=== PATIENT | female | born 1990 | race Caucasian/White ===

== ENCOUNTER → 2020-11-22 | Outpatient (REF) | payer BC ==
[2020-11-22 18:04] LABS: HEMATOCRIT 39.8 % (36.0-47.0); HEMOGLOBIN 13.5 g/dl (12.0-15.5); MEAN CORPUSCULAR HEMOGLOBIN 29.7 pg (27.0-33.0); MEAN CORPUSCULAR HGB CONC 33.9 g/dl (32.0-36.5); MEAN CORPUSCULAR VOLUME 87.5 fl (80.0-96.0); PLATELET COUNT, AUTOMATED 283 10^3/uL (150-450); RED BLOOD COUNT 4.55 10^6/uL (4.00-5.40); WHITE BLOOD COUNT 9.9 10^3/uL (4.0-10.0)
[2020-11-22 19:01] LABS: HEPATITIS C VIRUS ABY INDEX < 0.0 INDEX (<0.8); HIV 1&2 SCREEN CENTAUR NEGATIVE (NEGATIVE)
[2020-11-22 20:39] LABS: CHLAMYDIA DNA AMPLIFICATION NEGATIVE (NEGATIVE); GC DNA AMPLIFICATION NEGATIVE (NEGATIVE)
== END ==
LOC: M PLALAB 15:14
PROVIDERS: ATTEND Advanced Practice Midwife
DX: Z34.01 Encounter for supervision of normal first pregnancy, first trimester (principal)

== ENCOUNTER → 2020-12-21 | Outpatient (CLI) | payer BC | LOC: M PLALAB 10:10 | PROVIDERS: ATTEND Advanced Practice Midwife | DX: Z34.82 Encounter for supervision of other normal pregnancy, second trimester (principal); Z3A.00 Weeks of gestation of pregnancy not specified; Z84.89 Family history of other specified conditions ==

== ENCOUNTER → 2020-12-28 | Outpatient (CLI) | payer BC ==
--- NOTE | 2020-12-28 14:27 | REP ---
INDICATION: EVAL PLACENTA LOCATION. COMPARISON: None. TECHNIQUE: Transabdominal and transvaginal obstetric sonography. Limited scanning. FINDINGS: Scanning through the gravid uterus demonstrates a viable single intrauterine gestation in transverse lie. motion is observed and heart rate is recorded at 143 beats per minute. A anterior placenta is seen, grade 0, covering the internal cervical os consistent with complete placenta previa.. Closed cervical length is measured at 3.0 cm transvaginally. No extrauterine abnormality is observed. Amniotic fluid is subjectively normal. IMPRESSION: Anterior placenta with complete placenta previa. <Electronically signed by Heriberto Forrester > 12/28/20 [id number]
== END ==
LOC: M WHC 12:55
PROVIDERS: ATTEND Advanced Practice Midwife
DX: O46.92 Antepartum hemorrhage, unspecified, second trimester (principal); Z3A.00 Weeks of gestation of pregnancy not specified

== ENCOUNTER → 2021-03-07 | Outpatient (CLI) | payer BC ==
--- NOTE | 2021-03-08 08:50 | ECHO ---
ECHOCARDIOGRAM DATE OF PROCEDURE: 03/07/2021 Age: Gender: F Height: 165 cm Weight: 88 kg REFERRING PHYSICIAN: Charlene Herrera INDICATION: High-risk , cystic fibrosis carrier MEASUREMENTS: IVS: 0.8 LV: 4.6 LVPW: 0.8 LA: 3.3 Aorta: 3.0 Mitral E wave velocity is 59; A wave 56 E prime septal: 11.0 E prime lateral: 19.3 FINDINGS: This study is of acceptable technical quality. There are good parasternal views and limited apical and subcostal views. Underlying sinus rhythm with ventricular rate around 80 beats per minute. Left ventricle has normal size and systolic function; estimated left ventricular ejection fraction (LVEF) 65% to 70%. No segmental wall motion abnormalities are noted. Normal right ventricle (RV) size and systolic function. Normal size of both atria. Normal-appearing aortic, mitral, tricuspid and pulmonic valves. No pericardial effusion. Inferior vena cava was not well seen. Aortic root and aortic arch appear normal. Abdominal aorta was not well visualized. Doppler interrogation reveals competent aortic valve. There is trace mitral and trace tricuspid insufficiency. Pulmonic valve is functionally competent as well. Mitral inflow pattern and tissue Doppler imaging of mitral annulus reveal normal diastolic function. CONCLUSIONS: 1. Study is of acceptable technical quality, underlying sinus rhythm. 2. Normal left ventricle (LV) size with normal left ventricular (LV) systolic and diastolic function. 3. No significant valvular disease. 4. Unable to estimate central venous pressure but likely normal pulmonary artery pressure. 5. Accounting for technical limitations, essentially normal echocardiogram.
== END ==
LOC: M CARPUL 08:17
PROVIDERS: ATTEND Obstetrics & Gynecology
DX: O09.892 Supervision of other high risk pregnancies, second trimester (principal); Z14.1 Cystic fibrosis carrier; Z3A.00 Weeks of gestation of pregnancy not specified

== ENCOUNTER → 2021-03-14 | Outpatient (CLI) | payer BC | LOC: M PLALAB 10:44 | PROVIDERS: ATTEND Obstetrics & Gynecology | DX: Z34.93 Encounter for supervision of normal pregnancy, unspecified, third trimester (principal) ==

== ENCOUNTER 2021-05-20 16:28 | Outpatient (CLI) | payer BC ==
[~2021-05-20] VITALS: Ht 165.1 cm; Wt 95.8 kg
[2021-05-20 16:50] VITALS: BP 116/69
[2021-05-20] MEDS ORDERED: PEPC1TAB5 PO (16:59)
[2021-05-20] MEDS ORDERED: PRENTAB9 PO (16:59)
[2021-05-20] MEDS ORDERED: HOME MED LIST COMPLETE! XX SCH (17:00)
[2021-05-20 18:15] LABS: APPEARANCE, URINE HAZY (CLEAR); BACTERIA, URINE AUTO 1+ (NEGATIVE); BILIRUBIN, URINE AUTO NEGATIVE (NEGATIVE); BLOOD, URINE BLOOD NEGATIVE (NEGATIVE); COLOR, URINE YELLOW (YELLOW); GLUCOSE, URINE (UA) AUTO NEGATIVE (NEGATIVE); KETONE, URINE AUTO 1+ mg/dL (NEGATIVE); LEUKOCYTE ESTERASE, URINE AUTO 3+ (NEGATIVE); MUCUS, URINE SMALL (NEGATIVE); NITRITE, URINE AUTO NEGATIVE (NEGATIVE); PROTEIN, URINE AUTO NEGATIVE (NEGATIVE); RBC, URINE AUTO 2 /HPF (0-3); SPECIFIC GRAVITY URINE AUTO 1.011 (1.002-1.035); SQUAMOUS EPITHELIAL CELL UR AU 3 /HPF (0-6); UROBILINOGEN, URINE AUTO 0.2 mg/dL (0.0-2.0); WBC, URINE AUTO 17 /HPF (0-3)
[2021-05-20] MEDS ORDERED: NITROFURANTOIN (MACROBID) 100 MG CAP PO ONE (18:40)
[2021-05-20] MEDS ORDERED: NITR100C2 PO (18:45)
== END 2021-05-20 18:55 | disposition home or self-care (01) ==
LOC: M LDO 16:28
PROVIDERS: ATTEND Advanced Practice Midwife
DX: O47.03 False labor before 37 completed weeks of gestation, third trimester (principal); O23.43 Unspecified infection of urinary tract in pregnancy, third trimester; Z3A.35 35 weeks gestation of pregnancy
CPT/HCPCS: 59025; 81001; 87081; 87086; G0378; G0463

== ENCOUNTER 2021-06-26 08:06 | Inpatient (IN) | payer BC ==
[2021-06-26] VITALS (11 sets, daily range): BP systolic 111–143; BP diastolic 58–86
[~2021-06-26] VITALS: Ht 165.1 cm; Wt 100.9 kg
[~2021-06-26 08:06] MED LIST: NITR100C2 PO; PEPC1TAB5 PO; PRENTAB9 PO
[2021-06-26] MEDS ORDERED: HOME MED LIST COMPLETE! XX SCH (08:40)
[2021-06-26 10:13] LABS: HEMATOCRIT 31.6 % (36.0-47.0); MEAN CORPUSCULAR HGB CONC 31.6 g/dl (32.0-36.5); MEAN CORPUSCULAR VOLUME 82.1 fl (80.0-96.0); PLATELET COUNT, AUTOMATED 277 10^3/uL (150-450); RED BLOOD COUNT 3.85 10^6/uL (4.00-5.40); WHITE BLOOD COUNT 11.8 10^3/uL (4.0-10.0)
[2021-06-26] MEDS ORDERED: LIDOCAINE 1% MDV 20ML VIAL INFIL PRN (13:40)
[2021-06-26] MEDS ORDERED: OXYTOCIN INJ 10 UNITS/ML VIAL (J2590) IM PRN (13:40)
[2021-06-26] MEDS ORDERED: METHYLERGONOVINE MALEATE 0.2 MG/ML VIAL (J2210) IM PRN (13:40)
[2021-06-26] MEDS ORDERED: TRANEXAMIC ACID INJection 1,000 MG in NS 100 ML IV PRN (13:40)
[2021-06-26] MEDS ORDERED: CARBOPROST TROMETHAMINE 250 MCG/ML AMP IM PRN (13:40)
[2021-06-26] MEDS: miSOPROStol 50MCG 1/2 TABLET PO SCH ×3 (13:54→22:27)
[2021-06-27] VITALS (34 sets, daily range): BP systolic 104–142; BP diastolic 52–88
[2021-06-27] MEDS: miSOPROStol 50MCG 1/2 TABLET PO SCH (03:25)
[2021-06-27] MEDS ORDERED: OXYTOCIN 30 UNITS IN 0.9% NaCl 500ML IV BAG (J2590) As Ordered ONE (08:13)
[2021-06-27] MEDS ORDERED: OXYTOCIN DRIP 30 UNITS in IV 1 EA IV SCH (08:15)
[2021-06-27] MEDS: LR 1,000 ML IV SCH ×2 (08:47→16:22)
[2021-06-27] MEDS ORDERED: FAMOTIDINE 20 MG TAB PO SCH (09:00)
[2021-06-27] MEDS ORDERED: PILL CUTTER 1 EACH XX PRN (12:20)
[2021-06-27] MEDS ORDERED: BUTORPHANOL 2 MG/ML INJ (J0595) IV ONE (23:10)
[2021-06-27] MEDS ORDERED: PROMETHAZINE INJ 25 MG/ML VIAL (J2550) IV ONE (23:10)
[2021-06-28] VITALS (60 sets, daily range): BP systolic 98–159; BP diastolic 56–81
[2021-06-28] MEDS: LR 1,000 ML IV SCH ×3 (00:02→19:00)
[2021-06-28] MEDS ORDERED: FENTANYL 2MCG/ML ROPIVACAINE 0.2% IN 0.9% NACL 100ML IVBAG As Ordered ONE (04:57)
[2021-06-28] MEDS ORDERED: EPIDURAL COMMENT XX SCH (06:40)
[2021-06-28] MEDS ORDERED: REFRIGERATOR IV KEYS XX PRN (06:40)
[2021-06-28] MEDS ORDERED: ePHEDrine SULFATE 25 MG/5 ML(5MG/ML) SYRINGE IV PRN (06:40)
[2021-06-28] MEDS ORDERED: EPIDURAL/PCA KEYS XX PRN (06:40)
[2021-06-28] MEDS ORDERED: NALOXONE INJ 0.4MG/1ML VIAL (J2310 PER 1MG) IV PRN ×3 (06:40→18:48)
[2021-06-28] MEDS ORDERED: ONDANSETRON 4MG/2ML VIAL IV PRN ×4 (06:40→19:10)
[2021-06-28] MEDS ORDERED: diphenhydrAMINE 50MG/ML VIAL (J1200) IV PRN ×2 (06:40→18:48)
[2021-06-28] MEDS ORDERED: LACTATED RINGER'S 1000 ML IV PRN (06:40)
[2021-06-28] MEDS: FENTANYL/ROPIVACAINE/NACL BAG 100 ML EPIDURAL SCH ×2 (06:55→15:25)
[2021-06-28] MEDS ORDERED: BICITRA 30ML SOLN UDC PO ONE (15:25)
[2021-06-28] MEDS ORDERED: AZITHROMYCIN INJ 500 MG, VIAL MATE ADAPTER 1 EACH in NS 250 ML IV ONE (15:25)
[2021-06-28] MEDS ORDERED: ceFAZolin SOD 2 GM in IV 1 EA IV ONE (15:25)
[2021-06-28] MEDS ORDERED: OXYTOCIN INJ 10 UNITS/ML VIAL (J2590) As Ordered ONE (17:11)
[2021-06-28] MEDS ORDERED: KETOROLAC 60MG 2ML VIAL As Ordered ONE (17:11)
[2021-06-28] MEDS ORDERED: dexameTHASONE 4 MG/ML 1ML VIAL (J1100 PER 1MG) As Ordered ONE (17:11)
[2021-06-28] MEDS ORDERED: ONDANSETRON 4MG/2ML VIAL As Ordered ONE (17:11)
[2021-06-28] MEDS ORDERED: MORPHINE PRES-FREE INJ 10 MG/10 ML VIAL (J2274) As Ordered ONE (17:12)
[2021-06-28] MEDS ORDERED: LIDOCAINE 2% W/EPINEPHRINE 20ML VIAL **PRES FREE As Ordered ONE (18:05)
[2021-06-28] MEDS ORDERED: METOCLOPRAMIDE INJ 10MG/2ML VIAL (J2765 PER 1) IV PRN (18:48)
[2021-06-28] MEDS ORDERED: NALBUPHINE HCL 10 MG/ML AMP (J2300) IV PRN ×2 (18:48→19:10)
[2021-06-28] MEDS ORDERED: PERCOCET 5MG/325MG TAB PO PRN (19:00)
[2021-06-28] MEDS ORDERED: OXYTOCIN DRIP 30 UNITS in IV 1 EA IV SCH (19:00)
[2021-06-28] MEDS ORDERED: MEASLES,MUMPS,RUBELLA VACCINE INJ (MMR-II) (90707) SC SCH (19:00)
[2021-06-28] MEDS ORDERED: RHOGAM 300 MCG (1500 IU) INJ (J2790) IM SCH (19:00)
[2021-06-28] MEDS ORDERED: LR 1,000 ML IV SCH (19:10)
[2021-06-28] MEDS ORDERED: fentaNYL 100 MCG/2 ML INJECTION (J3010) IV PRN (19:10)
[2021-06-28] MEDS ORDERED: oxyCODONE 5MG TAB PO PRN (19:10)
[2021-06-28] MEDS ORDERED: OXYTOCIN 30 UNITS IN 0.9% NaCl 500ML IV BAG (J2590) As Ordered ONE (19:16)
[2021-06-28] MEDS: PERCOCET 5MG/325MG TAB PO PRN (21:30)
[2021-06-29] MEDS: KETOROLAC 30 MG/ML 1ML VIAL IV SCH ×3 (01:00→14:19)
[2021-06-29 02:00] VITALS: BP 122/64
[2021-06-29] MEDS: LR 1,000 ML IV SCH ×3 (03:00→18:43)
[2021-06-29 05:59] VITALS: BP 109/63
[2021-06-29 06:19] LABS: HEMOGLOBIN 7.9 g/dl (12.0-15.5); MEAN CORPUSCULAR HEMOGLOBIN 26.3 pg (27.0-33.0); MEAN CORPUSCULAR HGB CONC 31.6 g/dl (32.0-36.5); MEAN CORPUSCULAR VOLUME 83.3 fl (80.0-96.0); PLATELET COUNT, AUTOMATED 204 10^3/uL (150-450); WHITE BLOOD COUNT 14.5 10^3/uL (4.0-10.0)
[2021-06-29] MEDS ORDERED: OXYC1TAB23 PO (06:38)
[2021-06-29] MEDS ORDERED: IBUP80TA PO (06:38)
[2021-06-29] MEDS: DOCUSATE SODIUM 100MG CAPSULE PO PRN ×2 (08:21→20:10)
[2021-06-29] MEDS: SIMETHICONE 80MG CHEW TAB PO PRN ×2 (08:21→20:10)
[2021-06-29] MEDS: PRENATAL VITAMINS CHEWABLE TABLET PO SCH (08:21)
[2021-06-29 10:14] VITALS: BP 134/63
[2021-06-29 14:04] VITALS: BP 121/57
[2021-06-29 17:58] VITALS: BP 122/58
[2021-06-29] MEDS: IBUPROFEN 800 MG TAB PO SCH (20:10)
[2021-06-29] MEDS: PERCOCET 5MG/325MG TAB PO PRN (20:11)
[2021-06-29 22:00] VITALS: BP 127/59
[2021-06-30 02:00] VITALS: BP 115/54
[2021-06-30] MEDS: LR 1,000 ML IV SCH (03:00)
[2021-06-30] MEDS: PERCOCET 5MG/325MG TAB PO PRN ×2 (03:46→10:32)
[2021-06-30] MEDS: IBUPROFEN 800 MG TAB PO SCH ×2 (04:32→13:32)
[2021-06-30 05:49] VITALS: BP 116/58
[2021-06-30] MEDS: PRENATAL VITAMINS CHEWABLE TABLET PO SCH (09:30)
== END 2021-06-30 13:32 | disposition home or self-care (01) | DRG 540 ==
LOC: M LDI 08:06 → M OBS 06-28 20:20
PROVIDERS: ADMIT Obstetrics & Gynecology; ATTEND Specialist
PROC: 3E0P7GC Introduction of Other Therapeutic Substance into Female Reproductive, Via Natural or Artificial Opening (ICD-10-PCS; 2021-06-26)
PROC: 10D00Z1 Extraction of Products of Conception, Low, Open Approach (ICD-10-PCS; principal; 2021-06-28 18:00)
DX: O48.0 Post-term pregnancy (principal); O62.0 Primary inadequate contractions; Z3A.41 41 weeks gestation of pregnancy; Z37.0 Single live birth; Z88.0 Allergy status to penicillin; Z91.048 Other nonmedicinal substance allergy status

== ENCOUNTER 2022-03-30 07:06 | Emergency (ER) | payer BC ==
[~2022-03-30] VITALS: Ht 165.1 cm; Wt 86.8 kg
[~2022-03-30 07:06] MED LIST changes: +IBUP80TA PO; +OXYC1TAB23 PO
[2022-03-30 09:40] LABS: BASO % 0.2 % (0.0-1.0); EOS % 0.2 % (0.0-3.0); HEMATOCRIT 43.4 % (36.0-47.0); HEMOGLOBIN 14.8 g/dl (12.0-15.5); LYMPH # 0.7 10^3/uL (1.5-5.0); LYMPH % 5.2 % (24.0-44.0); MEAN CORPUSCULAR HEMOGLOBIN 29.2 pg (27.0-33.0); MEAN CORPUSCULAR HGB CONC 34.1 g/dl (32.0-36.5); MEAN CORPUSCULAR VOLUME 85.8 fl (80.0-96.0); MONO # 0.5 10^3/uL (0.0-0.8); NEUTROPHILS # 11.3 10^3/uL (1.5-8.5); NEUTROPHILS % 89.9 % (36.0-66.0); PLATELET COUNT, AUTOMATED 303 10^3/uL (150-450); RED BLOOD COUNT 5.06 10^6/uL (4.00-5.40); WHITE BLOOD COUNT 12.6 10^3/uL (4.0-10.0)
[2022-03-30 10:41] LABS: ALBUMIN 3.7 GM/DL (3.2-5.2); ALT/SGPT 58 U/L (12-78); BILIRUBIN,DIRECT 0.2 MG/DL (0.0-0.2); BILIRUBIN,TOTAL 0.5 MG/DL (0.2-1.0); BLOOD UREA NITROGEN 12 MG/DL (7-18); CALCIUM LEVEL 8.9 MG/DL (8.5-10.1); CARBON DIOXIDE LEVEL 23 MEQ/L (21-32); CHLORIDE LEVEL 105 MEQ/L (98-107); CREATININE FOR GFR 0.56 MG/DL (0.55-1.30); GLOMERULAR FILTRATION RATE > 60.0 (>60); GLUCOSE, FASTING 98 MG/DL (70-100); HCG, SERUM QUANTITATIVE 85470 MIU/ML; LIPASE 245 U/L (73-393); POTASSIUM SERUM 4.2 MEQ/L (3.5-5.1); SODIUM LEVEL 134 MEQ/L (136-145); TOTAL PROTEIN 7.4 GM/DL (6.4-8.2)
[2022-03-30] MEDS ORDERED: ONDANSETRON 4MG 2ML VIAL IV ONE (11:10)
[2022-03-30] MEDS ORDERED: NS 1,000 ML IV ONE (11:10)
[2022-03-30] MEDS ORDERED: ONDA4TAB6 PO (13:08)
[2022-03-30 13:21] VITALS: BP 106/53
== END 2022-03-30 13:52 | disposition home or self-care (01) ==
LOC: M ED 07:06
DX: O21.9 Vomiting of pregnancy, unspecified (principal); O98.511 Other viral diseases complicating pregnancy, first trimester; Z3A.09 9 weeks gestation of pregnancy; Z88.0 Allergy status to penicillin; Z91.048 Other nonmedicinal substance allergy status; Z79.899 Other long term (current) drug therapy
CPT/HCPCS: 80048; 80076; 83690; 84702; 85025; 86850; 86900; 86901; 87486; 87581; 87633; 87798; 96361; 96374; 99284; J2405

== ENCOUNTER → 2022-05-03 | Outpatient (CLI) | payer BC ==
[~2022-05-03] MED LIST changes: +ONDA4TAB6 PO
[2022-05-03 15:40] LABS: HEMATOCRIT 41.1 % (36.0-47.0); HEMOGLOBIN 13.7 g/dl (12.0-15.5); MEAN CORPUSCULAR HEMOGLOBIN 29.7 pg (27.0-33.0); MEAN CORPUSCULAR HGB CONC 33.3 g/dl (32.0-36.5); PLATELET COUNT, AUTOMATED 296 10^3/uL (150-450); RED BLOOD COUNT 4.62 10^6/uL (4.00-5.40); WHITE BLOOD COUNT 11.1 10^3/uL (4.0-10.0)
[2022-05-03 17:18] LABS: GC DNA AMPLIFICATION NEGATIVE (NEGATIVE)
[2022-05-03 19:46] LABS: HIV 1&2 SCREEN CENTAUR NEGATIVE (NEGATIVE)
== END ==
LOC: M PLALAB 14:05
PROVIDERS: ATTEND Advanced Practice Midwife
DX: O34.211 Maternal care for low transverse scar from previous cesarean delivery (principal); Z3A.13 13 weeks gestation of pregnancy

== ENCOUNTER → 2022-06-12 | Outpatient (CLI) | payer BC | LOC: M WHC 14:27 | PROVIDERS: ATTEND Advanced Practice Midwife | DX: O34.211 Maternal care for low transverse scar from previous cesarean delivery (principal); Z3A.19 19 weeks gestation of pregnancy ==

== ENCOUNTER → 2022-07-24 | Outpatient (CLI) | payer BC ==
[2022-07-24 15:56] LABS: HEMATOCRIT 36.3 % (36.0-47.0); MEAN CORPUSCULAR HGB CONC 33.1 g/dl (32.0-36.5); MEAN CORPUSCULAR VOLUME 93.8 fl (80.0-96.0); PLATELET COUNT, AUTOMATED 293 10^3/uL (150-450); RED BLOOD COUNT 3.87 10^6/uL (4.00-5.40); WHITE BLOOD COUNT 10.7 10^3/uL (4.0-10.0)
== END ==
LOC: M PLALAB 11:37
PROVIDERS: ATTEND Advanced Practice Midwife
DX: Z34.92 Encounter for supervision of normal pregnancy, unspecified, second trimester (principal)

== ENCOUNTER → 2022-08-03 | Outpatient (REF) | payer BC ==
[2022-08-03 21:38] LABS: GC DNA AMPLIFICATION NEGATIVE (NEGATIVE)
== END ==
LOC: M SFHCWAGY 17:05
PROVIDERS: ATTEND Obstetrics & Gynecology
DX: Z34.03 Encounter for supervision of normal first pregnancy, third trimester (principal)

== ENCOUNTER → 2022-10-02 | Outpatient (REF) | payer BC | LOC: M SFHCWAGY 15:13 | PROVIDERS: ATTEND Specialist | DX: Z34.83 Encounter for supervision of other normal pregnancy, third trimester (principal); Z3A.00 Weeks of gestation of pregnancy not specified ==

== ENCOUNTER → 2022-10-18 | Outpatient (CLI) | payer BC ==
[~2022-10-18] MED LIST changes: +PEPC10TA6 PO; +TUMS500C PO
== END ==
LOC: M WHC 13:11
PROVIDERS: ATTEND Specialist
DX: Z34.83 Encounter for supervision of other normal pregnancy, third trimester (principal); Z3A.37 37 weeks gestation of pregnancy

== ENCOUNTER 2022-10-27 05:33 | Inpatient (IN) | payer BC ==
[2022-10-27] VITALS (8 sets, daily range): BP systolic 93–131; BP diastolic 52–74
[~2022-10-27] VITALS: Ht 165.1 cm; Wt 98.4 kg
[2022-10-27] MEDS ORDERED: LACTATED RINGER'S 1000 ML IV STA (05:38)
[2022-10-27] MEDS ORDERED: LR 1,000 ML IV SCH (05:40)
[2022-10-27] MEDS ORDERED: ceFAZolin SOD 2 GM in IV 1 EA IV ONE (05:40)
[2022-10-27] MEDS ORDERED: HOME MED LIST COMPLETE! XX SCH (06:05)
[2022-10-27 06:51] LABS: HEMATOCRIT 30.8 % (36.0-47.0); HEMOGLOBIN 9.9 g/dl (12.0-15.5); MEAN CORPUSCULAR HEMOGLOBIN 27.9 pg (27.0-33.0); MEAN CORPUSCULAR HGB CONC 32.1 g/dl (32.0-36.5); MEAN CORPUSCULAR VOLUME 86.8 fl (80.0-96.0); PLATELET COUNT, AUTOMATED 247 10^3/uL (150-450); RED BLOOD COUNT 3.55 10^6/uL (4.00-5.40); WHITE BLOOD COUNT 9.6 10^3/uL (4.0-10.0)
[2022-10-27] MEDS ORDERED: BICITRA 30ML SOLN UDC As Ordered ONE (07:14)
[2022-10-27] MEDS ORDERED: BICITRA 30ML SOLN UDC PO ONE (07:15)
[2022-10-27] MEDS ORDERED: MORPHINE PRES-FREE INJ 10 MG/10 ML VIAL As Ordered ONE (07:23)
[2022-10-27] MEDS ORDERED: ACETAMINOPHEN 1000MG 100ML IV BAG As Ordered ONE ×3 (07:58→08:13)
[2022-10-27] MEDS ORDERED: OXYTOCIN 30UNITS IN 0.9% NaCl 500ML IV BAG As Ordered ONE (08:11)
[2022-10-27 08:13] LABS: CORD GAS ABE A -0.9; CORD GAS HCO3 A 26.3 MMOL/L; CORD GAS PCO2 A 54.1 mmHg; CORD GAS PH A 7.304 UNITS; CORD GAS PO2 A 21.3 mmHg; CORD GAS SBC A 22.7 MMOL/L; CORD GAS TCO2 A 27.9 MMOL/L
[2022-10-27] MEDS ORDERED: ONDANSETRON 4MG 2ML VIAL As Ordered ONE (08:13)
[2022-10-27] MEDS ORDERED: PHENYLephrine 500MCG 5ML (100MCG/ML) SYRINGE As Ordered ONE (08:13)
[2022-10-27 08:15] LABS: CORD GAS ABE V -1.9; CORD GAS HCO3 V 23.2 MMOL/L; CORD GAS O2 SAT V 84.3 %; CORD GAS PCO2 V 40.9 mmHg; CORD GAS PH V 7.372 UNITS; CORD GAS PO2 V 36.9 mmHg; CORD GAS SBC V 22.6 MMOL/L; CORD GAS TCO2 V 24.5 MMOL/L
[2022-10-27] MEDS ORDERED: KETOROLAC 60MG 2ML VIAL As Ordered ONE (08:20)
[2022-10-27] MEDS: LR 1,000 ML IV SCH ×3 (08:40→20:16)
[2022-10-27] MEDS ORDERED: OXYTOCIN DRIP 30 UNITS in IV 1 EA IV SCH (08:40)
[2022-10-27] MEDS ORDERED: RHOGAM 300MCG (1500IU) INJ IM SCH (08:40)
[2022-10-27] MEDS ORDERED: ONDANSETRON 4MG 2ML VIAL IV PRN ×2 (08:40→09:15)
[2022-10-27] MEDS: PRENATAL VITAMINS CHEWABLE TABLET PO SCH (09:00)
[2022-10-27] MEDS ORDERED: diphenhydrAMINE 50MG/ML VIAL IV PRN (09:15)
[2022-10-27] MEDS ORDERED: oxyCODONE 5MG TAB PO PRN (09:15)
[2022-10-27] MEDS: SLF 3 ML SYR IV SCH ×2 (09:15→14:36)
[2022-10-27] MEDS ORDERED: fentaNYL 100 MCG/2 ML INJECTION IV PRN (09:15)
[2022-10-27] MEDS ORDERED: METOCLOPRAMIDE INJ 10MG/2ML VIAL IV PRN (09:15)
[2022-10-27] MEDS ORDERED: HYDROMORPHONE HCL 0.5 MG/ 0.5 ML SYRINGE IV PRN (09:15)
[2022-10-27] MEDS ORDERED: **NOTE PATIENT COMMENT** MISC XX SCH (09:15)
[2022-10-27] MEDS ORDERED: NALOXONE INJ 0.4MG/1ML VIAL IV PRN ×2 (09:15)
[2022-10-27] MEDS ORDERED: MEPERIDINE 25 MG/ML 1ML VIAL IV PRN (09:15)
[2022-10-27] MEDS ORDERED: PERCOCET 5MG/325MG TAB As Ordered ONE (09:17)
[2022-10-27] MEDS: PERCOCET 5MG/325MG TAB PO PRN ×2 (09:18→14:35)
[2022-10-27] MEDS: KETOROLAC 30 MG/ML 1ML VIAL IV SCH ×2 (14:35→20:16)
[2022-10-28] MEDS: KETOROLAC 30 MG/ML 1ML VIAL IV SCH (01:59)
[2022-10-28] MEDS: SLF 3 ML SYR IV SCH (01:59)
[2022-10-28 02:00] VITALS: BP 114/55
[2022-10-28 06:00] VITALS: BP 110/59
[2022-10-28 06:49] LABS: HEMATOCRIT 31.9 % (36.0-47.0); HEMOGLOBIN 10.1 g/dl (12.0-15.5); MEAN CORPUSCULAR HEMOGLOBIN 27.7 pg (27.0-33.0); MEAN CORPUSCULAR HGB CONC 31.7 g/dl (32.0-36.5); MEAN CORPUSCULAR VOLUME 87.4 fl (80.0-96.0); PLATELET COUNT, AUTOMATED 255 10^3/uL (150-450); RED BLOOD COUNT 3.65 10^6/uL (4.00-5.40)
[2022-10-28] MEDS: SIMETHICONE 80MG CHEW TAB PO PRN ×3 (07:43→20:19)
[2022-10-28] MEDS: PERCOCET 5MG/325MG TAB PO PRN ×3 (07:44→20:14)
[2022-10-28 10:00] VITALS: BP 110/57
[2022-10-28] MEDS: PRENATAL VITAMINS CHEWABLE TABLET PO SCH (10:05)
[2022-10-28] MEDS: IBUPROFEN 800 MG TAB PO SCH ×2 (10:06→20:11)
[2022-10-28 14:00] VITALS: BP 120/67
[2022-10-28 17:48] VITALS: BP 110/66
[2022-10-28] MEDS: DOCUSATE SODIUM 100MG CAPSULE PO PRN (20:19)
[2022-10-28 22:06] VITALS: BP 111/54
[2022-10-29 01:48] VITALS: BP 113/60
[2022-10-29] MEDS: IBUPROFEN 800 MG TAB PO SCH ×3 (03:07→18:21)
[2022-10-29] MEDS: PERCOCET 5MG/325MG TAB PO PRN ×4 (03:09→20:55)
[2022-10-29] MEDS: SIMETHICONE 80MG CHEW TAB PO PRN (03:14)
[2022-10-29 06:00] VITALS: BP 122/58
[2022-10-29] MEDS ORDERED: MEASLES,MUMPS,RUBELLA VACCINE INJ (MMR-II) SC.IMMUN ONE (09:00)
[2022-10-29] MEDS ORDERED: IBUP80TA PO (09:48)
[2022-10-29] MEDS ORDERED: OXYC1TAB23 PO (09:48)
[2022-10-29] MEDS: PRENATAL VITAMINS CHEWABLE TABLET PO SCH (10:01)
[2022-10-29 15:00] VITALS: BP 122/58
[2022-10-29] MEDS: DOCUSATE SODIUM 100MG CAPSULE PO PRN (15:06)
[2022-10-29 18:00] VITALS: BP 134/64
[2022-10-30] MEDS: IBUPROFEN 800 MG TAB PO SCH (02:22)
[2022-10-30] MEDS: PERCOCET 5MG/325MG TAB PO PRN ×2 (03:03→07:56)
[2022-10-30 06:00] VITALS: BP 106/59
[2022-10-30] MEDS: PRENATAL VITAMINS CHEWABLE TABLET PO SCH (07:55)
[2022-10-30 08:00] VITALS: BP 106/59
== END 2022-10-30 11:10 | disposition home or self-care (01) | DRG 540 ==
LOC: M LDI 05:33 → M OBS 10:12
PROVIDERS: ADMIT Specialist; ATTEND Specialist
PROC: 10D00Z1 Extraction of Products of Conception, Low, Open Approach (ICD-10-PCS; principal; 2022-10-27 07:30)
DX: O34.211 Maternal care for low transverse scar from previous cesarean delivery (principal); O69.2XX0 Labor and delivery complicated by other cord entanglement, with compression, not applicable or unspecified; Z3A.39 39 weeks gestation of pregnancy; Z37.0 Single live birth

== ENCOUNTER → 2024-01-18 | Outpatient (CLI) | payer BC ==
[~2024-01-18] MED LIST changes: +ONDA-282 PO; -ONDA4TAB6 PO
[2024-01-18 11:42] LABS: BASO # 0.1 10^3/uL (0.0-0.2); EOS # 0.1 10^3/uL (0.0-0.5); EOS % 1.3 % (0.0-3.0); HEMATOCRIT 40.7 % (36.0-47.0); HEMOGLOBIN 13.6 g/dl (12.0-15.5); LYMPH # 2.2 10^3/uL (1.5-5.0); LYMPH % 34.4 % (24.0-44.0); MEAN CORPUSCULAR HEMOGLOBIN 29.4 pg (27.0-33.0); MEAN CORPUSCULAR HGB CONC 33.4 g/dl (32.0-36.5); MEAN CORPUSCULAR VOLUME 87.9 fl (80.0-96.0); MONO # 0.5 10^3/uL (0.0-0.8); MONO % 7.1 % (2.0-8.0); NEUTROPHILS # 3.5 10^3/uL (1.5-8.5); NEUTROPHILS % 55.7 % (36.0-66.0); PLATELET COUNT, AUTOMATED 280 10^3/uL (150-450); RED BLOOD COUNT 4.63 10^6/uL (4.00-5.40); WHITE BLOOD COUNT 6.3 10^3/uL (4.0-10.0)
[2024-01-18 12:04] LABS: ALKALINE PHOSPHATASE 78 U/L (46-116); ALT/SGPT 81 U/L (7.0-40); AST/SGOT 37 U/L (<34); BILIRUBIN,TOTAL 0.5 MG/DL (0.3-1.2); BLOOD UREA NITROGEN 12 MG/DL (9-23); CALCIUM LEVEL 8.8 MG/DL (8.5-10.1); CARBON DIOXIDE LEVEL 27 MMOL/L (20-31); CHLORIDE LEVEL 108 MMOL/L (98-107); CHOLESTEROL LEVEL 135 MG/DL (<200); CHOLESTEROL RISK RATIO 3.36 (<5); CREATININE FOR GFR 0.78 MG/DL (0.55-1.30); GLOMERULAR FILTRATION RATE > 60.0 (>60); GLUCOSE, FASTING 83 MG/DL (60-100); HDL CHOLESTEROL 40.1 MG/DL (>40); LDL CHOLESTEROL 64.3 MG/DL (<100); NON-HDL-C 94.9 MG/DL; POTASSIUM SERUM 3.9 MMOL/L (3.5-5.1); SODIUM LEVEL 136 MMOL/L (136-145); TRIGLYCERIDES LEVEL 153 MG/DL (<150)
[2024-01-18 12:06] LABS: FREE T4 1.23 NG/DL (0.89-1.76)
[2024-01-18 12:07] LABS: THYROID STIMULATING HORMONE 1.101 uIU/ML (0.55-4.78)
[2024-01-18 12:10] LABS: HEMOGLOBIN A1c 4.7 % (4.0-6.0)
== END ==
LOC: M PLALAB 07:14
PROVIDERS: ATTEND Registered Nurse
DX: R63.5 Abnormal weight gain (principal)

== ENCOUNTER → 2024-01-18 | Outpatient (CLI) | payer BC | LOC: M WHC 07:28 | PROVIDERS: ATTEND Registered Nurse | DX: N93.0 Postcoital and contact bleeding (principal) ==

== ENCOUNTER → 2024-03-04 | Outpatient (REF) | payer BC ==
[2024-03-06 15:18] LABS: HPV APTIMA Not Detected (Not Detected)
== END ==
LOC: M PLALAB 15:55
PROVIDERS: ATTEND Obstetrics & Gynecology
DX: Z01.419 Encounter for gynecological examination (general) (routine) without abnormal findings (principal)

== ENCOUNTER → 2024-04-21 | Outpatient (REF) | payer BC | LOC: M PLALAB 16:21 | PROVIDERS: ATTEND Obstetrics & Gynecology | DX: R87.615 Unsatisfactory cytologic smear of cervix (principal) ==

== ENCOUNTER → 2024-09-10 | Outpatient (CLI) | payer BC ==
[2024-09-10 17:14] LABS: ALBUMIN 4.1 G/DL (3.2-5.2); ALKALINE PHOSPHATASE 76 U/L (35-104); ALT/SGPT 19 U/L (7.0-40); AST/SGOT 18 U/L (<34); BILIRUBIN,TOTAL 0.3 MG/DL (0.3-1.2); BLOOD UREA NITROGEN 14 MG/DL (9-23); CALCIUM LEVEL 9.3 MG/DL (8.5-10.1); CARBON DIOXIDE LEVEL 28 MMOL/L (20-31); CHLORIDE LEVEL 107 MMOL/L (98-107); CREATININE FOR GFR 0.66 MG/DL (0.55-1.30); GLOMERULAR FILTRATION RATE > 90.0 (>60); GLUCOSE, FASTING 72 MG/DL (60-100); SODIUM LEVEL 143 MMOL/L (136-145); TOTAL PROTEIN 7.3 G/DL (5.7-8.2)
== END ==
LOC: M LAB 16:21
PROVIDERS: ATTEND Registered Nurse
DX: R94.5 Abnormal results of liver function studies (principal)

== ENCOUNTER → 2025-04-23 | Outpatient (CLI) | payer BC | LOC: M WHC 07:16 | PROVIDERS: ATTEND Physician Assistant | DX: R10.23 Pelvic and perineal pain bilateral (principal) ==